=== PATIENT | female | born 1960 | race Caucasian/White ===

== ENCOUNTER → 2024-06-09 07:25 | Outpatient (REF) | payer OTHER, SELFPAY | LOC: RAD 07:25 | PROVIDERS: ATTENDING PHYSICIAN Family Medicine | DX: K81.0 Acute cholecystitis (principal) | CPT/HCPCS: 78226; A9537 ==

== ENCOUNTER → 2025-04-16 18:36 | Outpatient (REF) | payer OTHER, SELFPAY | LOC: MRI 18:36 | PROVIDERS: ATTENDING PHYSICIAN Physician Assistant Surgical; FAMILY PHYSICIAN Family Medicine | DX: M25.551 Pain in right hip (principal) | CPT/HCPCS: 73721 ==